=== PATIENT | male | born 1955 | race Caucasian/White ===

== ENCOUNTER 2016-06-29 17:24 | Outpatient (CLI) ==
[2016-06-29 17:54] LABS: ALBUMIN 3.5 g/dL (3.4-5.0); ALBUMIN/GLOBULIN RATIO 1.06; ANION GAP 13.9; BILIRUBIN,TOTAL 0.29 mg/dL (0.00-1.20); BUN/CREATININE RATIO 12.71; CALCIUM 11.6 mg/dL (8.2-10.2); CREATININE 2.28 mg/dL (0.60-1.10); POTASSIUM 3.9 mmol/L (3.5-5.1); TOTAL PROTEIN 6.8 g/dL (6.4-8.2)
== END 2016-06-29 17:25 | disposition home or self-care (01) ==
LOC: LAB 17:24
PROVIDERS: ATTEND Internal Medicine
DX: R88.8 Abnormal findings in other body fluids and substances (principal)
CPT/HCPCS: 36415; 80053

== ENCOUNTER 2016-07-02 17:33 | Outpatient (CLI) | END 2016-07-02 17:34 | disposition home or self-care (01) | LOC: LAB 17:33 | PROVIDERS: ATTEND Internal Medicine | DX: E83.52 Hypercalcemia (principal) | CPT/HCPCS: 36415; 83970 ==

== ENCOUNTER 2016-07-21 17:19 | Outpatient (CLI) ==
--- NOTE | 2016-07-21 18:55 | DI ---
EXAM: PA and lateral views of the chest. HISTORY: Shortness of breath. FINDINGS: The bony structures are unremarkable. The cardiac silhouette and pulmonary vasculature a re within normal limits. The costophrenic angles are clear. There are bilateral round opacities me asuring 1.2 cm each projecting over the lung bases probably representing nipple shadows. No infiltr ate or consolidation. Impression: 1.2 cm bilateral round opacities projecting over the lung bases probably representing ni pple shadows. Recommend repeat PA view with nipple markers to exclude a lung nodule.
[2016-07-23 15:21] LABS: ALPHA-1 GLOBULIN 0.3 g/dL (0.0-0.4); ALPHA-2 GLOBULIN 0.8 g/dL (0.4-1.0); BETA GLOBULIN 1.1 g/dL (0.7-1.3); TOTAL GLOBULINS 3.2 g/dL (2.2-3.9); URINE ALBUMIN 23.7 % (.); URINE BETA GLOBULIN 28.3 % (.); URINE TOTAL PROTEIN 13.3 mg/dL (Not Estab.)
[2016-07-24 09:21] LABS: M-SPIKE 1 g/dL (Not Observed); URINE M-SPIKE % 1 % (Not Observed)
== END 2016-07-21 17:20 | disposition home or self-care (01) ==
LOC: RAD 17:19
PROVIDERS: ATTEND Internal Medicine
DX: R06.02 Shortness of breath (principal); R88.8 Abnormal findings in other body fluids and substances
CPT/HCPCS: 36415; 84156; 84165; 84166

== ENCOUNTER 2016-07-23 15:40 | Outpatient (CLI) ==
--- NOTE | 2016-07-23 17:01 | DI ---
EXAM: PA and lateral views of the chest HISTORY: Lung nodules COMPARISON: Chest x-ray 07/21/2016 FINDINGS: The cardiomediastinal silhouette is normal. There is no pneumothorax or pleural effusion . There is no consolidation, nodule or mass. Nodules on prior exam are most consistent with nipple shadow. The osseous structures are stable. IMPRESSION: No acute cardiopulmonary process
== END 2016-07-23 15:41 | disposition home or self-care (01) ==
LOC: RAD 15:40
PROVIDERS: ATTEND Internal Medicine
DX: R91.8 Other nonspecific abnormal finding of lung field (principal)

== ENCOUNTER 2016-09-28 17:21 | Outpatient (CLI) ==
--- NOTE | 2016-09-29 08:23 | DI ---
EXAM: Radiographs, left knee HISTORY: Left knee osteoarthritis. COMPARISON: None available. TECHNIQUE: Four views. FINDINGS: Bone mineralization is decreased. There is near complete loss of medial compartment join t space. Moderate marginal osteophyte formation seen in the patellofemoral compartment. Joint effu leanna is present. No fracture or dislocation identified. No localized soft tissue abnormality is se en. IMPRESSION: Osteoarthritis, severe in the medial compartment
== END 2016-09-28 17:22 | disposition home or self-care (01) ==
LOC: RAD 17:21
PROVIDERS: ATTEND Internal Medicine Rheumatology
DX: M17.0 Bilateral primary osteoarthritis of knee (principal)

== ENCOUNTER 2017-06-14 15:45 | Outpatient (CLI) ==
--- NOTE | 2017-06-14 16:06 | DI ---
EXAM: Left hip two-view HISTORY: Left hip pain COMPARISON: None FINDINGS: The bones are normal. Mild narrowing left hip joint. No focal soft tissue abnormality. IMPERSSION: Mild osteoarthritis left hip.
== END 2017-06-14 15:46 | disposition home or self-care (01) ==
LOC: RAD 15:45
PROVIDERS: ATTEND Internal Medicine Rheumatology
DX: M25.552 Pain in left hip (principal)

== ENCOUNTER 2017-08-15 15:48 | Outpatient (CLI) | END 2017-08-15 15:49 | disposition home or self-care (01) | LOC: LAB 15:48 | PROVIDERS: ATTEND Internal Medicine Rheumatology | DX: M06.9 Rheumatoid arthritis, unspecified (principal); Z79.899 Other long term (current) drug therapy | CPT/HCPCS: 36415 ==